=== PATIENT | male | born 1980 | race Caucasian/White ===

== ENCOUNTER 2022-04-29 14:16 | Emergency (ER) | payer OTHER, SELFPAY ==
--- NOTE | ~2022-04-29 | CT_ITS ---
EXAMINATION: CT ABDOMEN AND PELVIS WITHOUT CONTRAST CLINICAL INFORMATION: Right flank pain. History of kidney stones. COMPARISON: None TECHNIQUE: Multidetector volumetric imaging was performed from the superior aspect of the liver through the pubic symphysis. Sagittal and coronal reformatted images were obtained on the technologist's workstation. This CT examination was performed using dose optimization techniques as appropriate, variously including the following: *Automated exposure control *Adjustment of mA and/or kV according to patient size (this includes techniques or standardized protocols for targeted exams where dose is matched to indication/reason for exam; i.e. extremities or head) *Use of iterative reconstruction technique DLP: 431 mGy-cm FINDINGS: LUNG BASES: The visualized lung bases are unremarkable. LIVER, GALLBLADDER, AND BILIARY TREE: The liver is normal in size, shape, and attenuation. No focal hepatic lesion or biliary ductal dilatation is present. The gallbladder is unremarkable with no evidence of radiopaque gallstones, gallbladder wall thickening, or obvious pericholecystic inflammatory changes. PANCREAS: Unremarkable. SPLEEN: Unremarkable. ADRENAL GLANDS: Unremarkable. KIDNEYS AND URETERS: There 2 small stones in the right kidney. There is mild right hydronephrosis and ureteral dilatation from a 2 x 4 mm right proximal humeral stone. BLADDER: The bladder is not optimally distended. GASTROINTESTINAL TRACT: There is mild diverticulosis of the colon. No evidence of diverticulitis. The small and large bowel are otherwise unremarkable. The appendix is unremarkable. ABDOMINAL WALL: No significant hernia is appreciated. LYMPH NODES: Normal. VASCULAR: Unremarkable. PELVIC VISCERA: Unremarkable. OSSEOUS STRUCTURES: Unremarkable. CT/CT abdomen pelvis wo con IMPRESSION: Mild right hydronephrosis from a 2 x 4 mm right proximal ureteral stone. Additional small right renal stones. Mild diverticulosis of the colon. Fleischner guidelines were followed.
--- NOTE | ~2022-04-29 | US_ITS ---
EXAMINATION: US SCROTUM CLINICAL INFORMATION: Right testicular pain. COMPARISON: None TECHNIQUE: A sonogram of the scrotum was performed assessing soriano-scale appearance and color Doppler flow. Spectral Doppler analysis of the arterial and venous flow were performed in the testes bilaterally. FINDINGS: RIGHT: Right testicle measures 4.8 x 2.3 x 3.2 cm, volume 18.6 mL. No focal testicular parenchymal lesions are visualized. Incidental note made of a 7 x 4 x 8 mm testicular appendix. Spectral Doppler analysis of the arterial and venous flow is normal in the right testis. Right epididymal head is normal in size. A tiny 4 mm epididymal cyst is noted in the head of the right epididymis there is a tiny right hydrocele but no varicocele is seen. Right epididymal Doppler flow is normal. LEFT: Left testicle measures 4.8 x 2.0 x 2.9 cm, volume 14.3 mL. No focal testicular parenchymal lesions are visualized. Spectral Doppler analysis of the arterial and venous flow is normal in the left testis. Left epididymal head is normal in size. There is a tiny left hydrocele but no varicocele is seen. Left epididymal Doppler flow is normal. US/US scrotum IMPRESSION: Essentially negative exam and a definite etiology for the patient's acute right testicular pain has not been found. A small cyst is noted in the head of the right epididymis.
--- NOTE | ~2022-04-29 | US_ITS ---
EXAMINATION: US SCROTUM CLINICAL INFORMATION: Right testicular pain. COMPARISON: None TECHNIQUE: A sonogram of the scrotum was performed assessing soriano-scale appearance and color Doppler flow. Spectral Doppler analysis of the arterial and venous flow were performed in the testes bilaterally. FINDINGS: RIGHT: Right testicle measures 4.8 x 2.3 x 3.2 cm, volume 18.6 mL. No focal testicular parenchymal lesions are visualized. Incidental note made of a 7 x 4 x 8 mm testicular appendix. Spectral Doppler analysis of the arterial and venous flow is normal in the right testis. Right epididymal head is normal in size. A tiny 4 mm epididymal cyst is noted in the head of the right epididymis there is a tiny right hydrocele but no varicocele is seen. Right epididymal Doppler flow is normal. LEFT: Left testicle measures 4.8 x 2.0 x 2.9 cm, volume 14.3 mL. No focal testicular parenchymal lesions are visualized. Spectral Doppler analysis of the arterial and venous flow is normal in the left testis. Left epididymal head is normal in size. There is a tiny left hydrocele but no varicocele is seen. Left epididymal Doppler flow is normal. US/US scrotum doppler IMPRESSION: Essentially negative exam and a definite etiology for the patient's acute right testicular pain has not been found. A small cyst is noted in the head of the right epididymis.
[2022-04-29 14:53] VITALS: BP 122/97; PULSE 53; RESP 19; TEMP 36.6; O2SAT 100; BMI 23.8
--- NOTE | 2022-04-29 18:53 | ED_ITS ---
HPI - Male Genitourinary General Chief complaint: Urogenital-Male Stated complaint: R groin pain Time Seen by Provider: 04/29/22 20:05 Source: patient Mode of arrival: ambulatory Limitations: no limitations History of Present Illness HPI Narrative: 41 yold male with past medical history of right hydrocele presents to ED for right testicular pain that began suddenly around 13:00. Patient states right testicular pain radiating to right flank. Patient denies any penile discharge or penile lesions. Patient denies any recent trauma to the testicular area. Patient states mild dysuria but negative for hematuria nausea or vomiting. Patient denies any protruding mass in the right groin. Related Data Previous Rx's Medication Instructions Recorded naproxen 500 mg tablet 500 mg PO BID PRN pain 10 days #20 04/29/22 tabs oxycodone 5 mg capsule 5 mg PO TID PRN pain 3 days #9 caps 04/29/22 tamsulosin 0.4 mg capsule (Flomax) 0.4 mg PO DAILY 7 days #7 caps 04/29/22 Allergies Allergy/AdvReac Type Severity Reaction Status Date / Time No Known Allergies Allergy Verified 04/29/22 19:01 Review of Systems Review of Systems: Right testicular pain Yes all other systems are reviewed and are negative PMFSH Social History Social History Advance Directives: No Advance Directives Information Provided: No Physical Exam 2 Vital Signs: Vital Signs: Last Vital Signs Temp 98.4 F 04/29/22 22:43 Pulse 74 04/29/22 22:43 Resp 16 04/29/22 22:43 BP 122/80 04/29/22 22:43 Pulse Ox 98 04/29/22 22:43 O2 Del Method 04/29/22 22:43 BMI result Body Mass Index 23.8 Const: General: cooperative, healthy appearing, comfortable, no acute distress, well developed, alert, awake and Physically active Orientation/c onsciousness: oriented to time and patient oriented x3 HEENT: Head: Yes normal to inspection, Yes No palpable skull fracture present, Yes normocephalic, Yes atraumatic and No abrasion Eyes: General: appearance normal, both eyes and all related structures Neck: Neck: Yes normal visual inspection, Yes full ROM, Yes no lymphade nopathy, Yes no meningeal signs, Yes trachea midline, Yes supple, No anterior neck swelling and No tender Chest: Chest palpation & inspection: normal inspection of the chest and normal palpation of entire chest wall Resp: Effort & Inspection: normal respiratory effort and able to speak in co mplete sentences Auscultation: clear to auscultation bilaterally Cardio: Jugular venous distension: no JVD Heart sounds: S1 normal heart sound present and S2 normal heart sound present GI: Inspection: Yes normal to inspection and No abdominal wall ecchymosis Palpation (GI): Soft to palpation, not firm, nontender, no guarding and not rigid : Other: negative for any lymphadenopahty. Negative for hernias in groin or testilces. General: No CVA tenderness and Yes no CVA tenderness Male General Exam: Yes normal external exam Penis: normal penis and circumcised Meatus: meatus normal Scrotum: scrotum normal Testes: Testes normal, testicular lie normal, epididymides normal and no testicular tenderness Back/Spine/Pelvis: Back: no CVA tenderness, No CVA tenderness and No back tenderness Skin: General skin exam: no rashes or lesions noted and elasticity normal Neuro: General: oriented to time, patient oriented x3, gait normal, no meningeal signs and CN's II-XI intact bilaterally Cranial nerves: Yes CN's II-XII intact bilaterally Extrem: General: Yes normal to inspection and Yes full ROM Psych: Appearance: grossly normal, well kempt and not disheveled Course Course Course Narrative: Testicular ultrasound ordered by nursing staff. Reevaluation(s) Reevaluation #1: Testicular ultrasound normal. Physical exam does not indicate hernia or lymphadenopathy. UA ordered to check for blood for kidney stones. CT Abdomen of pelvis shows kidney in ureter. Labs normal white blood cell count. Kidney function normal. UA negative for UTI. Will discharge with Flomax, NSAIDs, oxycodone. Patient states he will be going back to [place] where he is from. Patient given copy of labs and images and told to call primary care to follow- up with a urologist Time: 19:32 MDM - Male Genitourinary MDM Narrative Medical decision making narrative: Kidney stones Lab Data Result diagrams: 04/29/22 20:21 04/29/22 20:21 Labs: Lab Results 04/29/22 04/29/22 04/29/22 Range/Units 19:19 20:21 20:21 WBC 8.3 (4.8-10.8) X10*3/uL RBC 4.54 L (4.60-5.80) X10*6/uL Hgb 13.3 L (14.0-18.0) g/dl Hct 38.9 L (42.0-52.0) % MCV 85.7 (80.0-98.0) fL MCH 29.3 (27.0-33.0) pg MCHC 34.2 (31.0-36.0) g/dl RDW 13.0 (11.0-16.0) % Plt Count 185 (160-400) X10*3/uL MPV 12.9 H (9.4-12.4) fL Immature Gran % (Auto) 0.2 (0.0-0.4) % Neut % (Auto) 72.6 (45-73) % Lymph % (Auto) 21.3 (20-40) % Marshall % (Auto) 5.7 (2-11) % Eos % (Auto) 0.1 (0-4) % Baso % (Auto) 0.1 (0-2) % Lymph # (Auto) 1.8 (1.2-4.9) X10*3/uL Marshall # (Auto) 0.5 (0.1-1.2) X10*3/uL Eos # (Auto) 0.0 (0.0-0.4) X10*3/uL Baso # (Auto) 0.0 (0.0-0.2) X10*3/uL Abs Immat Gran (auto) 0.02 (0.00-0.03) X10*3/uL Absolute Neuts (auto) 6.0 (2.0-8.3) x10*3/uL Absolute Nucleated RBC 0.000 (0.0-0.012) X10*3/uL Nucleated RBC % (auto) 0.0 (0.0-0.2) /100WBC Sodium 141 (135-145) mmol/L Potassium 4.3 (3.3-5.1) mmol/L Chloride 105 (96-108) mmol/L Carbon Dioxide 27 (22-29) mmol/L Anion Gap 13 (12-20) BUN 13 (9-16) mg/dL Creatinine 0.95 (0.5-1.4) mg/dL Estim Creat Clear Calc 97.6 Estimated GFR > 60 Random Glucose 109 (60-115) mg/dL Calcium 9.4 (8.4-10.2) mg/dL Total Bilirubin 0.6 (0.0-1.0) mg/dL AST 18 (5-37) U/L ALT 14 (0-40) U/L Alkaline Phosphatase 45 (39-117) U/L Total Protein 7.1 (6.5-8.0) g/dL Albumin 4.2 (3.5-5.0) g/dL Urine Color YELLOW Urine Appearance CLEAR Urine pH 6.0 (5.0-8.0) Ur Specific Center <= 1.005 (1.005-1.025) Urine Protein Negative (NEG-TRACE) MG/DL Urine Glucose (UA) Negative (NEG) MG/DL Urine Ketones Negative (NEG) MG/DL Urine Blood Large (3+) H (NEG) Urine Nitrite Negative (NEG) Ur Leukocyte Esterase Negative (Negative) Urine RBC 50-75 H (0) /HPF Urine WBC 1-4 (0-4) /HPF Ur Squamous Epith Cells TRACE /LPF Urine Bacteria NONE /LPF Urine Mucus 1+ /LPF Discharge Plan Discharge Clinical Impression: Calculus, ureter Patient Disposition: Home, Self-Care Instructions: Ureteral Stones (ED) Additional Instructions: Return to the ED immediately for worsening abdominal pain, fever, chills, flank pain, nausea, vomiting, hematuria, penile lesions, penile discharge, testicular pain, or any other concerning symptoms. Please follow-up with our urologist. Prescriptions: New tamsulosin [Flomax] 0.4 mg capsule 0.4 mg PO DAILY 7 Days Qty: 7 0RF naproxen 500 mg tablet 500 mg PO BID PRN (Reason: pain) 10 Days Qty: 20 0RF oxycodone 5 mg capsule 5 mg PO TID PRN (Reason: pain) 3 Days Qty: 9 0RF Rx Instructions: Partial Fill upon patient request. Side effect is drowsiness. Do not take at work or while driving. Stand Alone Forms: Work/School Release Interventions: ED Discharge Assessment Last Done: 04/29/22 23:01 Discharge Date/Time: 04/29/22 23:02 Print Language: Ukrainian
[2022-04-29 19:11] VITALS: BP 119/82; PULSE 56; RESP 14; TEMP 36.6; O2SAT 100
[2022-04-29 19:42] LABS: Appearance Urine CLEAR; Color Urine YELLOW; Glucose Urine UA Negative (NEG); Leukocyte Esterase Urine Negative (Negative); Nitrite Urine Negative (NEG); Specific Gravity - Urine <= 1.005 (1.005-1.025); Urine Blood Large (3+) (NEG); Urine Ketones Negative (NEG); Urine Protein Negative (NEG-TRACE)
[2022-04-29 19:53] LABS: Mucus Urine 1+ /LPF
[2022-04-29 19:54] LABS: Squamous Epithelial Cell Urine TRACE /LPF
[2022-04-29 19:56] LABS: RBC Urine 50-75 /HPF (0)
[2022-04-29 20:29] LABS: MANUAL DIFF FLAG NO
[2022-04-29 20:30] LABS: Basophils Percent Auto 0.1 % (0-2); Eosinophils Percent Auto 0.1 % (0-4); Hematocrit 38.9 % (42.0-52.0); Hemoglobin 13.3 g/dl (14.0-18.0); Imm Gran Abs Auto 0.02 X10*3/uL (0.00-0.03); Imm Gran Pct Auto 0.2 % (0.0-0.4); Lymphocytes Absolute Auto 1.8 X10*3/uL (1.2-4.9); Lymphocytes Percent Auto 21.3 % (20-40); Mean Corpuscular HGB Conc 34.2 g/dl (31.0-36.0); Mean Corpuscular Hemoglobin 29.3 pg (27.0-33.0); Mean Corpuscular Volume 85.7 fL (80.0-98.0); Mean Platelet Volume 12.9 fL (9.4-12.4); Monocytes Absolute Auto 0.5 X10*3/uL (0.1-1.2); Monocytes Percent Auto 5.7 % (2-11); Neutrophils Percent Auto 72.6 % (45-73); Platelet Count 185 X10*3/uL (160-400); Red Blood Count 4.54 X10*6/uL (4.60-5.80); White Blood Count 8.3 X10*3/uL (4.8-10.8)
[2022-04-29 20:49] LABS: Alanine Aminotransferase 14 U/L (0-40); Albumin Level 4.2 g/dL (3.5-5.0); Alkaline Phosphatase 45 U/L (39-117); Anion Gap 13 (12-20); Aspartate Amino Transferase 18 U/L (5-37); Bilirubin Total 0.6 mg/dL (0.0-1.0); Blood Urea Nitrogen 13 mg/dL (9-16); Calcium 9.4 mg/dL (8.4-10.2); Carbon Dioxide 27 mmol/L (22-29); Chloride 105 mmol/L (96-108); Creatinine Clr Calc Pharmacy 97.6; Estimated Glomerular Filt Rate > 60; Glucose Random 109 mg/dL (60-115); Potassium 4.3 mmol/L (3.3-5.1); Sodium 141 mmol/L (135-145); Total Protein 7.1 g/dL (6.5-8.0)
[2022-04-29 22:43] VITALS: BP 122/80; PULSE 74; RESP 16; TEMP 36.9; O2SAT 98
[2022-04-29] MEDS: Ibuprofen 800 MG TABLET PO (22:55)
[2022-04-29] MEDS: Tamsulosin HCL 0.4 MG CAPSULE 0.8 MG PO (22:55)
[2022-04-30 04:57] LABS: CT PCR NOT DETECTED (Not Detect.); NG PCR NOT DETECTED (Not Detect.)
== END 2022-04-29 23:02 | disposition home or self-care (01) ==
PROVIDERS: Physician Assistant; Emergency Provider Internal Medicine
DX: N13.2 Hydronephrosis with renal and ureteral calculous obstruction (principal); R10.31 Right lower quadrant pain
CPT/HCPCS: 36415; 74176; 76870; 80053; 81001; 85025; 87491; 87591; 93975; 99284